=== PATIENT | female | born 1995 | race Caucasian/White ===

== ENCOUNTER 2023-03-13 10:57 | Emergency (ER) | payer MEDICAID ==
[~2023-03-13] VITALS: Ht 170.2 cm; Wt 127.3 kg
[2023-03-13 11:13] VITALS: TEMP 97.8
[2023-03-13 11:31] VITALS: BP 123/49; PULSE 74; RESP 24; O2SAT 100
[2023-03-13] MEDS ORDERED: LORazepam 2 mg/ml vial IV ONE (11:40)
--- NOTE | 2023-03-13 11:48 | NUR ---
AUNT CRUZITO PHONE NUMBER [phone]
== END 2023-03-13 12:46 | disposition home or self-care (01) ==
LOC: ER 10:59
DX: F41.0 Panic disorder [episodic paroxysmal anxiety] (principal); M54.9 Dorsalgia, unspecified; R11.0 Nausea; R20.0 Anesthesia of skin; G89.29 Other chronic pain; F32.A Depression, unspecified; F17.200 Nicotine dependence, unspecified, uncomplicated; Z56.0 Unemployment, unspecified
CPT/HCPCS: 96374; 99283; J2060